=== PATIENT | female | born 1955 | race Caucasian/White ===

== ENCOUNTER 2020-10-28 09:39 | Emergency (ER) | payer OTHER, MEDICARE ==
--- NOTE | 2020-10-28 09:53 | EDM.PDOC ---
ED HPI GENERAL MEDICAL PROBLEM - General Stated Complaint: COVID TEST Time Seen by Provider: 10/28/20 09:41 Source of Information: Reports: Patient History Limitations: Reports: No Limitations - History of Present Illness INITIAL COMMENTS - FREE TEXT/NARRATIVE: 65-year-old female presents requesting COVID-19 test so she can go to [place]. Patient denies any symptoms. She had Covid March. She has not had the vaccine. - Related Data Home Meds: Home Meds Cyanocobalamin (Vitamin B12) [Vitamin B12] 1,000 mcg IM 10/28/20 [History] Nebivolol HCl [Bystolic] 5 mg PO DAILY 10/28/20 [History] Sucralfate [Carafate] 1 gm PO TID PRN 10/28/20 [History] ED ROS GENERAL - Review of Systems Review Of Systems: Comprehensive ROS is negative, except as noted in HPI. ED EXAM, GENERAL - Physical Exam Exam: See Below Exam Limited By: No Limitations General Appearance: Alert, WD/WN, No Apparent Distress Throat/Mouth: Normal Voice, No Airway Compromise Head: Atraumatic, Normocephalic Neck: Normal Inspection Respiratory/Chest: No Respiratory Distress, Lungs Clear, Normal Breath Sounds, No Accessory Muscle Use Cardiovascular: Normal Peripheral Pulses, Regular Rate, Rhythm Extremities: Normal Inspection Neurological: Alert, Normal Cognition Psychiatric: Normal Affect, Normal Mood Skin Exam: Warm, Dry, Intact, Ecchymosis Course - Vital Signs Last Recorded V/S: Last Vital Signs Temp 98.0 F 10/28/20 10:14 Pulse 69 10/28/20 10:14 Resp BP 132/70 10/28/20 10:14 Pulse Ox 97 10/28/20 10:14 - Orders/Labs/Meds Labs: Laboratory Tests 10/28/20 Range/Units 10:32 SARS-CoV-2 RNA (CYNTHIA) NEGATIVE (NEGATIVE) - Re-Assessments/Exams Free Text/Narrative Re-Assessment/Exam: 10/28/20 10:27 We will get COVID-19 test 10/28/20 11:45 Covid testing is negative. Will discharge patient. Departure - Departure Time of Disposition: 11:44 Disposition: Home, Self-Care 01 Condition: Good Clinical Impression: Encounter for medical screening examination - Discharge Information Instructions: COVID-19 Vaccine Information Referrals: PCP,None [Primary Care Provider] - Additional Instructions: Your Covid PCR test was negative. In order to protect yourself and contacts from recurrent Covid infection you should get a Covid vaccination. The Covid vaccination is a safe, free vaccine that has an 85 to 95% efficacy rate of preventing Covid infection and a 100% efficacy rate of preventing severe Covid infection. Having had Covid once, you are not protected entirely from getting it again. If you need Covid testing for travel in the future, I would recommend going to a Covid testing center. Our emergency department is not a Covid testing center. You will be billed for an ER visit. You can find local testing centers at [email or web address]://www.[email or web address]. [place].gov/diseases-conditions/coronavirus/testing-care/dqtrf-tsr-hfudr-19-test or by calling the public [facility] department. The following information is given to patients seen in the emergency department who are being discharged to home. This information is to outline your options for follow-up care. We provide all patients seen in our emergency department with a follow-up referral. The need for follow-up, as well as the timing and circumstances, are variable depending upon the specifics of your emergency department visit. If you don't have a primary care physician on staff, we will provide you with a referral. We always advise you to contact your personal physician following an emergency department visit to inform them of the circumstance of the visit and for follow-up with them and/or the need for any referrals to a consulting specialist. The emergency department will also refer you to a specialist when appropriate. This referral assures that you have the opportunity for follow-up care with a specialist. All of these measure are taken in an effort to provide you with optimal care, which includes your follow-up. Under all circumstances we always encourage you to contact your private physician who remains a resource for coordinating your care. When calling for follow-up care, please make the office aware that this follow-up is from your recent emergency room visit. If for any reason you are refused follow-up, please contact the [facility] Department at and asked to speak to the emergency department charge nurse. Please follow up with your primary care physician. If you do not have a primary care physician, see below: [facility] [address] [place] [address] [phone] [facility] [address] [place] [address] [facility] [address] [place] [address] Sepsis Event Note (ED) - Focused Exam Vital Signs: Vital Signs Temp Pulse BP Pulse Ox 10/28/20 10:14 98.0 F 69 132/70 97
== END 2020-10-28 11:55 | disposition home or self-care (01) ==
LOC: MW.ED 09:39
DX: Z00.00 Encounter for general adult medical examination without abnormal findings (principal); Z20.822 Contact with and (suspected) exposure to COVID-19
CPT/HCPCS: 99282; U0002